=== PATIENT | female | born 1935 | race Caucasian/White ===

== ENCOUNTER 2023-03-23 11:06 | Emergency (ER) | payer MEDICARE, BC ==
[~2023-03-23] VITALS: Ht 162.6 cm; Wt 74.8 kg
[~2023-03-23 11:06] MED LIST: ASPI-1169 PO; ROSU5TAB PO
[2023-03-23 11:50] VITALS: TEMP 98.4
[2023-03-23] MEDS ORDERED: BENZOIN COMPOUND TINCT 60 ML BOTTLE ONE (12:36)
[2023-03-23 13:21] VITALS: BP 122/84; O2SAT 100
== END 2023-03-23 13:47 | disposition home or self-care (01) ==
LOC: ER 11:13
DX: S41.112A Laceration without foreign body of left upper arm, initial encounter (principal); E78.00 Pure hypercholesterolemia, unspecified; Z79.82 Long term (current) use of aspirin; Z79.899 Other long term (current) drug therapy; W19.XXXA Unspecified fall, initial encounter; Y93.89 Activity, other specified; Y92.89 Other specified places as the place of occurrence of the external cause; Y99.8 Other external cause status
CPT/HCPCS: 99281; A6403

== ENCOUNTER 2023-07-04 13:41 | Emergency (ER) | payer MEDICARE, BC ==
[~2023-07-04] VITALS: Ht 165.1 cm; Wt 78.5 kg
[2023-07-04] MEDS ORDERED: BENZOIN COMPOUND TINCT 60 ML BOTTLE ONE (14:25)
[2023-07-04] MEDS ORDERED: BACI/NEOM/POLY B OINT PKT 1 UDPKT PACKET TP ONE (14:30)
[2023-07-04] MEDS ORDERED: IV NS 0.9% 1,000 ML BAG IV ONE (14:30)
[2023-07-04] MEDS ORDERED: TDAP [DIPH/PERTUSSIS/TET] 0.5 ML VIAL IM ONE ×2 (14:30→15:05)
[2023-07-04 14:36] LABS: BASOPHILS % (AUTO) 0.3 % (0.0-2.0); EOSINOPHILS % (AUTO) 9.1 % (0.0-6.0); HEMATOCRIT 42 % (33-45); HEMOGLOBIN 13.8 g/dL (11.5-14.8); LYMPHOCYTES % (AUTO) 8.6 % (20.0-44.0); MEAN CORPUSCULAR HEMOGLOBIN 30 PG (26.0-33.0); MEAN CORPUSCULAR HGB CONC 33 g/dl (31.0-36.0); MEAN CORPUSCULAR VOLUME 91 fL (82-100); MONOCYTES # (AUTO) 1.2 K/uL (0.1-1.30); MONOCYTES % (AUTO) 10.2 % (2.0-12.0); NEUTROPHILS # (AUTO) 8.2 K/uL (1.8-8.9); NEUTROPHILS % (AUTO) 71.8 % (43.0-81.0); PLATELET COUNT (AUTO) 221 K/uL (150-450); RED BLOOD CELL COUNT(AUTO) 4.61 MIL/uL (4.0-5.2); WHITE BLOOD COUNT (AUTO) 11.5 K/uL (4.3-11.0)
[2023-07-04 15:00] LABS: INR 0.97 (0.91-1.10); PARTIAL THROMBOPLASTIN TIME 27.1 SEC (24.3-34.3); PROTHROMBIN TIME 10.3 SECS (9.2-11.1)
[2023-07-04 15:31] LABS: CALCIUM, SERUM 8.8 mg/dL (8.5-10.1); CARBON DIOXIDE 23 mmol/L (21-32); CHLORIDE 104 mmol/L (98-107); CREATININE 1.3 mg/dL (0.6-1.3); GLUCOSE 129 mg/dL (74-106); POTASSIUM 4.1 mmol/L (3.5-5.1); SODIUM SERUM 135 mmol/L (136-145); UREA NITROGEN, BLOOD 12 mg/dL (7-18)
[2023-07-04 15:41] LABS: ALANINE AMINOTRANSFERASE 16 U/L (12-78); ALBUMIN 3.4 g/dL (3.4-5.0); ALKALINE PHOSPHATASE 107 U/L (46-116); ASPARTATE AMINOTRANSFERASE 12 U/L (15-37); BILIRUBIN,DIRECT 0.1 mg/dL (0.0-0.2); BILIRUBIN,TOTAL 0.4 mg/dL (0.2-1.0); TOTAL PROTEIN, SERUM 6.9 g/dL (6.4-8.2)
[2023-07-04] MEDS ORDERED: LIDOCAINE 1%-EPI 1:100,000 20 ML VIAL ONE (16:59)
[2023-07-04] MEDS ORDERED: LIDOCAINE 1%-EPI 1:100,000 20 ML VIAL TP ONE (17:00)
[2023-07-04 18:08] VITALS: BP 148/81; TEMP 98.4; O2SAT 100
== END 2023-07-04 18:12 | disposition home or self-care (01) ==
LOC: ER 13:54
DX: S01.111A Laceration without foreign body of right eyelid and periocular area, initial encounter (principal); S51.011A Laceration without foreign body of right elbow, initial encounter; S83.91XA Sprain of unspecified site of right knee, initial encounter; E78.00 Pure hypercholesterolemia, unspecified; Z20.822 Contact with and (suspected) exposure to COVID-19; W18.30XA Fall on same level, unspecified, initial encounter; Y93.89 Activity, other specified; Y92.89 Other specified places as the place of occurrence of the external cause; Y99.8 Other external cause status
CPT/HCPCS: 12011; 36415; 70450; 71045; 73080; 73090; 73564; 80048; 80076; 84484; 85025; 85730; 87426; 90471; 90715; 93005; 96360; 99285; A6403; J3490; J7030

== ENCOUNTER 2023-07-11 14:41 | Emergency (ER) | payer MEDICARE, BC ==
[~2023-07-11] VITALS: Ht 165.1 cm; Wt 78.5 kg
[2023-07-11 14:46] VITALS: BP 125/88; TEMP 98
[2023-07-11] MEDS ORDERED: CEPH500C2 PO (14:58)
[2023-07-11 15:18] VITALS: O2SAT 97
== END 2023-07-11 15:19 | disposition home or self-care (01) ==
LOC: ER 14:41
DX: L03.113 Cellulitis of right upper limb (principal); Z48.02 Encounter for removal of sutures; E78.00 Pure hypercholesterolemia, unspecified